=== PATIENT | male | born 1960 | race Caucasian/White ===

== ENCOUNTER 2018-08-06 09:51 | Emergency (ER) | payer OTHER ==
[~2018-08-06] VITALS: Ht 182.9 cm; Wt 95.3 kg
[2018-08-06] MEDS ORDERED: METOPROLOL TART25 MG PO (16:44)
--- NOTE | 2018-08-06 22:52 | EKG ---
[facility] [address] [facility] [place] [address] Signed Sinus rhythm with short ND Cannot rule out Anterior infarct , age undetermined Abnormal ECG No previous ECGs available Confirmed by SUZANNA PATEL MD ([id number]) on 08/06/2018 10:51:54 PM Electronically Signed By: SUZANNA PATEL MD 08/06/18 2252 PATIENT NAME: DIANA VITALE Electrocardiogram DATE OF : 56 PHYSICIAN: SUZANNA PATEL MD REPORT #: [id number] REPORT IS CONFIDENTIAL AND NOT TO BE RELEASED WITHOUT AUTHORIZATION
== END 2018-08-06 16:55 | disposition home or self-care (01) ==
LOC: ED 09:51
DX: I20.8 Other forms of angina pectoris (principal)
CPT/HCPCS: 71046; 80053; 84484; 85025; 93005; 93010; 99285